=== PATIENT | female | born 2000 | race African-American/Black ===

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

== ENCOUNTER 2021-04-11 17:44 | Emergency (ER) | payer OTHER ==
[2021-04-11] MEDS ORDERED: Dexamethasone 4 MG TAB ONE (20:11)
== END 2021-04-11 20:14 | disposition home or self-care (01) ==
LOC: ERS 17:44
DX: H65.92 Unspecified nonsuppurative otitis media, left ear (principal)
CPT/HCPCS: 99282; J8540

== ENCOUNTER 2022-05-14 14:06 | Emergency (ER) | payer MEDICAID, OTHER | END 2022-05-14 17:30 | disposition home or self-care (01) | LOC: ERS 14:06 | DX: S09.90XA Unspecified injury of head, initial encounter (principal); Y04.0XXA Assault by unarmed brawl or fight, initial encounter | CPT/HCPCS: 70450; 70486; 71045; 72125 ==

== ENCOUNTER 2022-12-01 09:41 | Emergency (ER) | payer MEDICAID, OTHER ==
[2022-12-01] MEDS ORDERED: Ketorolac Tromethamine 30 MG/ML VIAL ONE (11:16)
[2022-12-01] MEDS ORDERED: diphenhydrAMINE 50 MG/ML VIAL ONE (11:16)
[2022-12-01] MEDS ORDERED: Metoclopramide HCl 10 MG/2 ML VIAL ONE (11:16)
== END 2022-12-01 14:32 | disposition home or self-care (01) ==
LOC: ERS 09:41
DX: S01.81XA Laceration without foreign body of other part of head, initial encounter (principal); F07.81 Postconcussional syndrome; W22.8XXA Striking against or struck by other objects, initial encounter
CPT/HCPCS: 96365; 96366; 96375; J1200; J1885; J2765